=== PATIENT | female | born 1995 | race American Indian/Alaskan Native ===

== ENCOUNTER 2016-12-16 17:12 | Emergency (ER) | payer MEDICAID ==
[2016-12-16] MEDS ORDERED: LORazepam 1 MG Tab PO ONE (17:55)
[2016-12-16] MEDS ORDERED: GI Cocktail Oral Solution 30 ML PO ONE (17:55)
--- NOTE | 2016-12-16 18:02 | EDM.PDOC ---
<Yuniel Thomas - Last Filed: 12/16/16 19:03> ED HPI GENERAL MEDICAL PROBLEM - General Chief Complaint: Chest Pain Stated Complaint: CHEST PAINS, COMING IN OWN VEHICLE Time Seen by Provider: 12/16/16 17:48 Source of Information: Reports: Patient History Limitations: Reports: No Limitations - History of Present Illness INITIAL COMMENTS - FREE TEXT/NARRATIVE: Patient comes emergency Department today with complaints of sharp shooting stabbing intermittent chest pain that has been going on for the past 24 hours. She has not have any chest pain at this time and it comes and goes on its own. Nothing makes it worse or better. It is not worse with a deep breath or cough. She has not had any fever or chills. She denies any shortness of breath. No cough or congestion. He does complain of a sour funny taste in her throat as well. She has had anxiety in the past and this is typically what she feels like when she is having an anxiety attack. He does complain of some nausea as well as some mild epigastric pain. She denies any other abdominal pain. No hematuria dysuria or urinary frequency. Bilateral Upper Chest Pain Score (Numeric/FACES): 8 - Related Data Allergies Allergy/AdvReac Type Severity Reaction Status Date / Time No Known Allergies Allergy Verified 12/16/16 17:24 Home Meds: Home Meds . 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: Musculoskeletal History: Reports: None Neurological History: Reports: None Psychiatric History: Reports: None Endocrine/Metabolic History: Reports: Diabetes, Gestational Hematologic History: Reports: None Immunologic History: Reports: None Oncologic (Cancer) History: Reports: None Dermatologic History: Reports: None - Infectious Disease History Infectious Disease History: Reports: None - Past Surgical History Head Surgeries/Procedures: Reports: None Social & Family History - Family History Family Medical History: Noncontributory - Tobacco Use Smoking Status *Q: Former Smoker Years of Tobacco use: 1 Packs/Tins Daily: 0.2 Used Tobacco, but Quit: Yes Month Tobacco Last Used: 02 Second Hand Smoke Exposure: No - Alcohol Use Days Per Week of Alcohol Use: 0 - Recreational Drug Use Recreational Drug Use: No ED ROS GENERAL - Review of Systems Review Of Systems: ROS reveals no pertinent complaints other than HPI. ED EXAM, GENERAL - Physical Exam Exam: See Below Exam Limited By: No Limitations General Appearance: WD/WN, No Apparent Distress, Anxious Nose: Normal Inspection Throat/Mouth: Normal Inspection, Normal Lips, Normal Oropharynx Head: Atraumatic, Normocephalic Neck: Normal Inspection, Supple, Non-Tender Respiratory/Chest: No Respiratory Distress, Lungs Clear, Normal Breath Sounds, No Accessory Muscle Use, Chest Non-Tender Cardiovascular: Normal Peripheral Pulses, Regular Rate, Rhythm, No Edema, No JVD , No Murmur Peripheral Pulses: 2+: Radial (L), Radial (R), Posterior Tibial (L), Posterior Tibial (R), Dorsalis Pedis (L), Dorsalis Pedis (R) GI/Abdominal: Normal Bowel Sounds, Soft, Tender (Very mild tenderness to deep palpation in the epigastric region. The rest of the abdomen is nontender.). No : Distended, Guarding, Rigid, Rebound (Female) Exam: Deferred Rectal (Female) Exam: Deferred Back Exam: Normal Inspection. No: CVA Tenderness (L), CVA Tenderness (R) Extremities: Normal Inspection, Normal Range of Motion, No Pedal Edema, Normal Capillary Refill Neurological: Alert, Oriented Psychiatric: Normal Affect, Normal Mood Skin Exam: Warm, Dry, Intact, Normal Color EKG INTERPRETATION EKG Date: 12/16/16 Time: 17:43 Rhythm: NSR Rate (Beats/Min): 60 Cabins: Normal P-Wave: Present QRS: Normal ST-T: Normal QT: Normal Comparison: NA - No Prior EKG Course - Vital Signs Last Recorded V/S: Last Vital Signs Temp 36.3 C 12/16/16 17:20 Pulse 56 L 12/16/16 18:31 Resp 16 12/16/16 18:31 BP 107/74 12/16/16 18:31 Pulse Ox 100 12/16/16 18:31 - Orders/Labs/Meds Orders: Active Orders 24 hr Category Date Time Status EKG 12 Lead [EKG Documentation Completion] [RC] URGENT Care 12/16/16 17:54 Active Labs: Laboratory Tests 12/16/16 12/16/16 Range/Units 18:10 18:10 WBC 7.9 (5.0-10.0) 10^3/uL RBC 5.02 (4.2-5.4) 10^6/uL Hgb 13.5 (12.0-16.0) g/dL Hct 40.6 (37.0-47.0) % MCV 80.9 (80-100) fL MCH 26.9 L (27.0-34.0) pg MCHC 33.3 (33.0-35.0) g/dL Plt Count 228 (150-450) 10^3/uL Neut % (Auto) 56.5 (42.2-75.2) % Lymph % (Auto) 33.1 (20.5-50.1) % [place] % (Auto) 5.9 (2-8) % Eos % (Auto) 4.2 H (1.0-3.0) % Baso % (Auto) 0.3 (0.0-1.0) % Sodium 139 (135-145) mmol/L Potassium 3.6 (3.6-5.0) mmol/L Chloride 102 (101-111) mmol/L Carbon Dioxide 25.0 (21.0-31.0) mmol/L Anion Gap 15.6 BUN 9 (7-18) mg/dL Creatinine 0.6 (0.6-1.3) mg/dL Est Cr Clr Drug Dosing 125.92 mL/min Estimated GFR (MDRD) > 60 BUN/Creatinine Ratio 15.00 Glucose 125 H (74-105) mg/dL Calcium 9.2 (8.4-10.2) mg/dl Total Bilirubin 0.7 (0.2-1.0) mg/dL AST 23 (10-42) IU/L ALT 36 (10-60) IU/L Alkaline Phosphatase 95 (42-121) IU/L Troponin I < 0.02 (0.00-0.02) ng/ml Total Protein 7.9 (6.7-8.2) g/dl Albumin 4.2 (3.2-5.5) g/dl Globulin 3.7 Albumin/Globulin Ratio 1.14 Meds: Medications Discontinued Medications Generic Name Dose Route Start Last Admin Trade Name Freq PRN Reason Stop Dose Admin Al Hydroxide/Mg Hydroxide 30 ml 12/16/16 17:55 12/16/16 18:03 Gi Cocktail PO 12/16/16 17:56 30 ml ONETIME ONE Administration Lorazepam 1 mg 12/16/16 17:55 12/16/16 18:04 Ativan PO 12/16/16 17:56 1 mg ONETIME ONE Administration - Re-Assessments/Exams Free Text/Narrative Re-Assessment/Exam: 12/16/16 18:03 GI cocktail by mouth. Ativan 1 mg sublingually. 12/16/16 19:03 Care of this patient given to Dr. Benedict at this time. Disposition will be made by Dr. Benedict. Departure - Departure Disposition: Home, Self-Care 01 Clinical Impression: Atypical chest pain, Anxiety Instructions: Nonspecific Chest Pain, [id number] Forms: ED Department Discharge Additional Instructions: 1) rest 2) follow up at clinic or recheck as needed rx given; hydroxyzine 25mg bid prn x 12 <Jonatan Benedict - Last Filed: 12/16/16 19:31> Course - Re-Assessments/Exams Free Text/Narrative Re-Assessment/Exam: 12/16/16 19:28 re-exam; sleeping arousable has no c/o feels fine wants to go home. states she gets anxiety and this is how it feels and didn't think it was her heart Departure - Departure Time of Disposition: 19:29 Condition: Good
[2016-12-16 18:32] VITALS: BP 107/74
[2016-12-16 18:35] LABS: CHLORIDE,CL 102 mmol/L (101-111); SODIUM,NA 139 mmol/L (135-145)
--- NOTE | 2017-01-04 09:15 | EKG ---
12/16/2016 - PORFIRIO NORWOOD - EKG is sinus rhythm with a rate of 60, normal IA interval, normal axis. EKG is within normal limits. [facility] /[id number]
== END 2016-12-16 19:53 | disposition home or self-care (01) ==
LOC: DL.ED 17:12
DX: R07.89 Other chest pain (principal); F41.9 Anxiety disorder, unspecified; Z87.891 Personal history of nicotine dependence
CPT/HCPCS: 36415; 71020; 80053; 84484; 85025; 93005; 99283; A9270

== ENCOUNTER 2017-05-01 04:31 | Emergency (ER) | payer MEDICAID ==
[2017-05-01 04:38] VITALS: BP 125/87
[2017-05-01] MEDS ORDERED: Benzocaine 20% Oral Spray 59.2 ML Canister MUCMEM ONE (04:46)
[2017-05-01] MEDS ORDERED: Lidocaine 2% Jelly 10 ML Urojet MUCMEM ONE (04:46)
[2017-05-01] MEDS ORDERED: Acetaminophen 500 MG Tab PO ONE (04:47)
--- NOTE | 2017-05-01 04:49 | EDM.PDOC ---
ED HPI GENERAL MEDICAL PROBLEM - General Chief Complaint: ENT Problem Stated Complaint: TOOTHACHE [id number] Time Seen by Provider: 05/01/17 04:44 Source of Information: Reports: Patient, Family History Limitations: Reports: No Limitations - History of Present Illness INITIAL COMMENTS - FREE TEXT/NARRATIVE: 21 yo [place] Female c/o right posterior mandible toothache X 1 week Onset Date: 04/24/17 Onset Time: 12:00 Duration: Getting Worse Location: Reports: Face Quality: Reports: Ache Severity: Moderate Improves with: Reports: None Worsens with: Reports: None Context: Reports: Other (toothache) Associated Symptoms: Reports: No Other Symptoms Right Lower Tooth/Teeth Pain Score (Numeric/FACES): 10 - Related Data Allergies Allergy/AdvReac Type Severity Reaction Status Date / Time No Known Allergies Allergy Verified 05/01/17 04:34 Home Meds: Home Meds . 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: Musculoskeletal History: Reports: None Neurological History: Reports: None Psychiatric History: Reports: None Endocrine/Metabolic History: Reports: Diabetes, Gestational Hematologic History: Reports: None Immunologic History: Reports: None Oncologic (Cancer) History: Reports: None Dermatologic History: Reports: None - Infectious Disease History Infectious Disease History: Reports: None - Past Surgical History Head Surgeries/Procedures: Reports: None Social & Family History - Family History Family Medical History: Noncontributory - Tobacco Use Smoking Status *Q: Former Smoker Years of Tobacco use: 1 Packs/Tins Daily: 0.2 Used Tobacco, but Quit: Yes Month Tobacco Last Used: 02 Second Hand Smoke Exposure: No - Caffeine Use Caffeine Use: Reports: Soda - Alcohol Use Days Per Week of Alcohol Use: 0 - Recreational Drug Use Recreational Drug Use: No ED ROS ENT - Review of Systems Review Of Systems: See Below Constitutional: Reports: No Symptoms HEENT: Reports: Dental Pain (right posterior mandible) Respiratory: Reports: No Symptoms Cardiovascular: Reports: No Symptoms Endocrine: Reports: No Symptoms GI/Abdominal: Reports: No Symptoms : Reports: No Symptoms Musculoskeletal: Reports: No Symptoms Skin: Reports: No Symptoms Neurological: Reports: No Symptoms Psychiatric: Reports: No Symptoms Hematologic/Lymphatic: Reports: No Symptoms Immunologic: Reports: No Symptoms ED EXAM, ENT - Physical Exam Exam: See Below Exam Limited By: No Limitations General Appearance: Alert, WD/WN, No Apparent Distress Eye Exam: Bilateral Eye: PERRL Ears: Normal External Exam Nose: Normal Inspection Mouth/Throat: Normal Inspection, Dental Pain, Dental Tenderness (right posterior mandible) Head: Atraumatic Neck: Normal Inspection Respiratory/Chest: No Respiratory Distress, Lungs Clear Cardiovascular: Normal Peripheral Pulses, Regular Rate, Rhythm GI/Abdominal: Normal Bowel Sounds, Soft Extremities: Normal Inspection Neurological: Alert, Oriented, CN II-XII Intact Psychiatric: Normal Affect Skin: Warm Lymphatic: No Adenopathy Course - Vital Signs Last Recorded V/S: Last Vital Signs Temp 36.4 C 05/01/17 04:36 Pulse 69 05/01/17 04:36 Resp 20 05/01/17 04:36 BP 125/87 05/01/17 04:36 Pulse Ox 100 05/01/17 04:36 Departure - Departure Time of Disposition: 04:52 Disposition: Home, Self-Care 01 Condition: Good Clinical Impression: Dental caries, Odontalgia Fracture of tooth Qualifiers: Encounter type: initial encounter Fracture type: open Qualified Code(s): S02.5XXB - Fracture of tooth (traumatic), initial encounter for open fracture - Discharge Information Additional Instructions: Good oral hygiene - [place] Teeth X 2 mins TID Rinse teeth TID w/ Diluted Listerine Take the Oral Antibiotic as prescribed: PEN V K 500mg QID # 40 For pain apply the toothballs as directed and Tylenol ES 500mg QID F/U w/ Dentist
== END 2017-05-01 05:00 | disposition home or self-care (01) ==
LOC: DL.ED 04:31
DX: S02.5XXB Fracture of tooth (traumatic), initial encounter for open fracture (principal); K02.9 Dental caries, unspecified; Z87.891 Personal history of nicotine dependence; X58.XXXA Exposure to other specified factors, initial encounter
CPT/HCPCS: 99282; A9270

== ENCOUNTER 2020-12-03 06:46 | Emergency (ER) | payer MEDICAID ==
[2020-12-03] MEDS ORDERED: Ibuprofen 800 MG Tab PO ONE (07:01)
--- NOTE | 2020-12-03 07:01 | EDM.PDOC ---
ED HPI GENERAL MEDICAL PROBLEM - General Chief Complaint: Skin Complaint Stated Complaint: [id number] INFECTION IN LEFT HAND Time Seen by Provider: 12/03/20 07:00 Source of Information: Reports: Patient, RN, RN Notes Reviewed History Limitations: Reports: No Limitations - History of Present Illness INITIAL COMMENTS - FREE TEXT/NARRATIVE: Pt presents to ER with c/o infection to left index and middle fingers. Pt claims that about 3 or 4 days ago she scratched her knuckles on a sawsall blade and now it has become infected. Yesterday she tried to squeeze pus out from the fingers, and this morning it looks worse. Denies fever, chills, or other symptoms. Onset: Gradual Duration: Day(s): (3-4) Location: Reports: Upper Extremity, Left Quality: Reports: Ache Severity: Moderate Improves with: Reports: None Worsens with: Reports: None Associated Symptoms: Reports: No Other Symptoms - Related Data Allergies Allergy/AdvReac Type Severity Reaction Status Date / Time No Known Allergies Allergy Verified 04/26/18 08:25 Home Meds: Home Meds . 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: Musculoskeletal History: Reports: None Neurological History: Reports: None Psychiatric History: Reports: None Endocrine/Metabolic History: Reports: Diabetes, Gestational Hematologic History: Reports: None Immunologic History: Reports: None Oncologic (Cancer) History: Reports: None Dermatologic History: Reports: None - Infectious Disease History Infectious Disease History: Reports: None - Past Surgical History Head Surgeries/Procedures: Reports: None Social & Family History - Family History Family Medical History: No Pertinent Family History - Caffeine Use Caffeine Use: Reports: Soda - Living Situation & Occupation Living situation: Reports: Occupation: Unemployed ED ROS GENERAL - Review of Systems Review Of Systems: Comprehensive ROS is negative, except as noted in HPI. ED EXAM, SKIN/RASH Exam: See Below Exam Limited By: No Limitations General Appearance: Alert, WD/WN, No Apparent Distress Head: Atraumatic, Normocephalic Neck: Normal Inspection Respiratory/Chest: No Respiratory Distress, Lungs Clear, Normal Breath Sounds, No Accessory Muscle Use, Chest Non-Tender Cardiovascular: Normal Peripheral Pulses Extremities: Other (Dorsal knuckles of proximal PIP joints left 2nd and 3rd fingers with pustular blisters and abrasions, no surrounding erythema). No: Joint Swelling, Increased Warmth Neurological: Alert, Oriented, No Motor/Sensory Deficits Psychiatric: Normal Mood Skin: Warm, Dry ED SKIN PROCEDURES - I&D Site: Left 2nd and 3rd fingers Skin Prep: Isopropyl Alcohol (Alcohol) Local Anesthesia: Lidocaine: Other (None) Area Incised With: Needle Drainage: Purulent, Small Amount Probed to Break Up Loculations: No Packed With: None Sterile Dressing: Adhesive Dressing Complications: No Course - Orders/Labs/Meds Orders: Active Orders 24 hr Category Date Time Status CULTURE WOUND [RM] Stat Lab 12/03/20 07:02 Ordered Meds: Medications Discontinued Medications Generic Name Dose Route Start Last Admin Trade Name Freq PRN Reason Stop Dose Admin Bacitracin 1 dose 12/03/20 07:03 Bacitracin Oint 1 Gm U/D Packet TOP 12/03/20 07:04 ONETIME ONE Clindamycin HCl 300 mg 12/03/20 07:02 Clindamycin Hcl 150 Mg Cap PO 12/03/20 07:03 ONETIME ONE Doxycycline Monohydrate 100 mg 12/03/20 07:02 Doxycycline Monohydrate 100 Mg Cap PO 12/03/20 07:03 ONETIME ONE Ibuprofen 800 mg 12/03/20 07:01 Ibuprofen 800 Mg Tab PO 12/03/20 07:02 ONETIME ONE Departure - Departure Time of Disposition: 07:11 Disposition: Home, Self-Care 01 Condition: Good Clinical Impression: Abrasion of finger with infection Qualifiers: Encounter type: initial encounter Qualified Code(s): S60.419A - Abrasion of unspecified finger, initial encounter; L08.9 - Local infection of the skin and subcutaneous tissue, unspecified - Discharge Information *PRESCRIPTION DRUG MONITORING PROGRAM REVIEWED*: Not Applicable *COPY OF PRESCRIPTION DRUG MONITORING REPORT IN PATIENT JAIR: Not Applicable Instructions: Abrasion, [id number], Wound Infection, [id number] Forms: ED Department Discharge Additional Instructions: Rx: Clindamycin 300mg Rx: Doxycycline 100mg Rx: Bactroban Ointment 2% Follow up in clinic next week if not improving as expected. - My Orders Last 24 Hours: My Active Orders 12/03/20 07:02 CULTURE WOUND [RM] Stat - Assessment/Plan Last 24 Hours: My Active Orders 12/03/20 07:02 CULTURE WOUND [RM] Stat
[2020-12-03] MEDS ORDERED: Clindamycin HCl 150 MG Cap PO ONE (07:02)
[2020-12-03] MEDS ORDERED: Doxycycline Monohydrate 100 MG Cap PO ONE (07:02)
[2020-12-03] MEDS ORDERED: Bacitracin Oint 1 GM U/D Packet TOP ONE (07:03)
[2020-12-03 07:12] VITALS: BP 114/79; PULSE 94
== END 2020-12-03 07:27 | disposition home or self-care (01) ==
LOC: DL.ED 06:46
DX: S60.411A Abrasion of left index finger, initial encounter (principal); S60.413A Abrasion of left middle finger, initial encounter; L08.9 Local infection of the skin and subcutaneous tissue, unspecified; W26.8XXA Contact with other sharp object(s), not elsewhere classified, initial encounter
CPT/HCPCS: 26010; 87070; 87077; 87186; 99283; A9270

== ENCOUNTER 2021-01-09 10:49 | Emergency (ER) | payer MEDICAID | END 2021-01-09 11:11 | disposition left against medical advice (07) | LOC: DL.ED 10:49 | DX: Z53.21 Procedure and treatment not carried out due to patient leaving prior to being seen by health care provider (principal) ==

== ENCOUNTER 2024-05-11 16:31 | Emergency (ER) | payer SELFPAY ==
[2024-05-11] MEDS ORDERED: Sodium Chloride 0.9% 10 ML Syringe FLUSH PRN (17:19)
[2024-05-11 17:51] LABS: BASOPHILS PERCENT AUTO 0.2 % (0.0-1.0); EOSINOPHILS PERCENT AUTO 2.6 % (1.0-3.0); HEMATOCRIT 37.2 % (37.0-47.0); HEMOGLOBIN 12.3 g/dL (12.0-16.0); LYMPHOCYTES PERCENT AUTO 31.8 % (20.5-50.1); MEAN CORPUSCULAR HEMOGLOBIN 26.1 pg (27.0-34.0); MEAN CORPUSCULAR HGB CONC 33.1 g/dL (33.0-35.0); MEAN CORPUSCULAR VOLUME 78.8 fL (80-100); MONOCYTES PERCENT AUTO 9.1 % (2-8); NEUTROPHILS PERCENT AUTO 56.3 % (42.2-75.2); PLATELET COUNT,PLT 186 10^3/uL (150-450); RED BLOOD CELL COUNT 4.72 10^6/uL (4.2-5.4); WHITE BLOOD CELL COUNT,WBC 4.9 10^3/uL (5.0-10.0)
[2024-05-11 18:05] LABS: INR 1.2 (0.9-1.2); PROTHROMBIN TIME 12.1 SEC (9.0-12.0); PTT,PARTIAL THROMBOPLSTIN TIME 26.3 SEC (22.0-34.0)
[2024-05-11 18:19] LABS: A/G RATIO 0.94; ALBUMIN 3.2 g/dL (3.4-5.0); ALKALINE PHOSPHATASE 404 U/L (46-116); ANION GAP 9.8 mEq/L (7-13); BILIRUBIN TOTAL 9.7 mg/dL (0.2-1.0); BLOOD UREA NITROGEN,BUN 6 mg/dL (7-18); BUN/CREATININE RATIO 9.5 (No establ ref range); C-REACTIVE PROTEIN 1.06 ng/dL (<=0.50); CALCIUM 8.7 mg/dL (8.5-10.1); CARBON DIOXIDE,CO2 29 mmol/L (21-32); CHLORIDE,CL 101 mmol/L (98-107); CREATININE 0.63 mg/dL (0.55-1.02); EST CRCL DRUG DOSING (CG) 112.75 mL/min; GLUCOSE RANDOM 172 mg/dL (70-99); LIPASE 80 U/L (16-77); POTASSIUM,K 2.8 mmol/L (3.5-5.1); PROTEIN TOTAL,TP 6.6 g/dL (6.4-8.2); SODIUM,NA 137 mmol/L (136-145)
[2024-05-11 18:24] LABS: ESTIMATED GFR 122 mL/min (>=60)
[2024-05-11 18:25] LABS: ETHANOL BLOOD MEDICAL < 3 mg/dL (0)
[2024-05-11] MEDS: Iopamidol 612 MG/ML 100 ML Bottle IVPUSH ONE (18:38)
[2024-05-11] MEDS: Potassium Chloride 20 MEQ in Premix Bag 1 BAG IV ONE ×2 (19:08→21:27)
[2024-05-11] MEDS: Sodium Chloride 0.9% 1,000 ML IV ONE (19:08)
[2024-05-11] MEDS: HYDROmorphone 1 MG/ML Syringe IVPUSH ONE ×2 (19:25→22:30)
[2024-05-11 20:21] LABS: ALANINE AMINOTRANSFERASE,ALT > 1000 U/L (14-59); ASPARTATE AMNIOTRANSFERASE,AST > 1000 U/L (15-37)
[2024-05-11] MEDS: Ondansetron 4 MG/2 ML SDV IVPUSH ONE (22:28)
[2024-05-11] MEDS: Piperacillin/Tazobactam 4.5 GM in Sodium Chloride 0.9% 100 ML IV ONE (22:34)
== END 2024-05-11 22:58 ==
LOC: DL.ED 16:31
DX: K72.00 Acute and subacute hepatic failure without coma (principal); K80.10 Calculus of gallbladder with chronic cholecystitis without obstruction; E87.6 Hypokalemia; F17.210 Nicotine dependence, cigarettes, uncomplicated; Z86.16 Personal history of COVID-19; Z79.899 Other long term (current) drug therapy
CPT/HCPCS: 36415; 71045; 74177; 80053; 80074; 80143; 80179; 80307; 82140; 83605; 83615; 83690; 84484; 85025; 85610; 85730; 86140; 93005; 96365; 96366; 96368; 96375; 96376; 99285; J1171; J2405; J2543; J3480; J3490; J7030; Q9967

== ENCOUNTER 2025-04-28 13:31 | Observation (INO) | payer MEDICAID, OTHER ==
[2025-04-28] MEDS: Iopamidol 612 MG/ML 100 ML Bottle IVPUSH ONE (14:05)
[2025-04-28 14:08] LABS: ETHANOL BLOOD MEDICAL < 3 mg/dL (0)
[2025-04-28] MEDS: Ondansetron 4 MG/2 ML SDV IVPUSH ONE (14:09)
[2025-04-28] MEDS: fentaNYL 100 MCG/2 ML SDV IVPUSH ONE (14:11)
[2025-04-28 14:16] LABS: LACTIC ACID 1.4 mmol/L (0.4-2.0)
[2025-04-28 14:18] LABS: APPEARANCE,URINE CLEAR (CLEAR); GLUCOSE,URINE NEGATIVE (NEGATIVE); OCCULT BLOOD,URINE TRACE-INTACT (NEGATIVE)
[2025-04-28 14:22] LABS: AMPHETAMINES,URINE NEGATIVE (NEGATIVE); BARBITURATES,URINE NEGATIVE (NEGATIVE); MDMA (ECSTASY), URINE NEGATIVE (NEGATIVE); METHAMPHETAMINES,URINE NEGATIVE (NEGATIVE); OPIATES,URINE NEGATIVE (NEGATIVE); OXYCODONE,URINE NEGATIVE (NEGATIVE); PHENCYCLIDINE,URINE NEGATIVE (NEGATIVE); TCA,URINE NEGATIVE (NEGATIVE)
[2025-04-28 14:31] LABS: SQUAMOUS EPITHELIAL CELLS,UR FEW /HPF (NOT SEEN)
[2025-04-28 16:36] LABS: ALANINE AMINOTRANSFERASE,ALT 37.0 U/L (14-59); ASPARTATE AMNIOTRANSFERASE,AST 23.0 U/L (15-37); BILIRUBIN DIRECT 0.1 mg/dL (0.0-0.2); BILIRUBIN INDIRECT 0.3; BILIRUBIN TOTAL 0.4 mg/dL (0.2-1.0); IRON,FE 11.0 ug/dL (50-170); PERCENT FE SATURATION 3.0 % (20.0-50.0); PROTEIN TOTAL,TP 7.3 g/dL (6.4-8.2)
[2025-04-28 16:41] LABS: A/G RATIO 0.7
[2025-04-28] MEDS: Magnesium Sulfate 2 GM/50 mL 2 GM in Premix Bag 1 BAG IV ONE (16:53)
[2025-04-28] MEDS: Ondansetron 4 MG/2 ML SDV IVPUSH PRN (16:53)
[2025-04-28] MEDS: Heparin Sodium 5,000 Units/ML Vial SUBCUT SCH (21:01)
[2025-04-29 06:26] LABS: BASOPHILS PERCENT AUTO 0.2 % (0.0-1.0); EOSINOPHILS PERCENT AUTO 2.3 % (1.0-3.0); LYMPHOCYTES PERCENT AUTO 26.5 % (20.5-50.1); MONOCYTES PERCENT AUTO 11.1 % (2-8); NEUTROPHILS PERCENT AUTO 59.9 % (42.2-75.2); PLATELET COUNT,PLT 203 10^3/uL (150-450); RED BLOOD CELL COUNT 3.50 10^6/uL (4.2-5.4); WHITE BLOOD CELL COUNT,WBC 5.7 10^3/uL (5.0-10.0)
[2025-04-29 06:41] LABS: BLOOD UREA NITROGEN,BUN 5.0 mg/dL (7-18); CARBON DIOXIDE,CO2 28.0 mmol/L (21-32); CHLORIDE,CL 104.0 mmol/L (98-107); CREATININE 0.57 mg/dL (0.55-1.02); EST CRCL DRUG DOSING (CG) 123.49 mL/min; GLUCOSE RANDOM 203.0 mg/dL (70-99); POTASSIUM,K 3.7 mmol/L (3.5-5.1); SODIUM,NA 141.0 mmol/L (136-145)
[2025-04-29 06:47] LABS: ESTIMATED GFR 125.0 mL/min (>=60)
== END 2025-04-29 12:10 | disposition home or self-care (01) ==
LOC: DL.ED 13:31 → DL.MS 15:43
PROVIDERS: ADMIT Internal Medicine; ATTEND Internal Medicine
DX: A41.9 Sepsis, unspecified organism (principal); N10 Acute pyelonephritis; R11.2 Nausea with vomiting, unspecified; R00.0 Tachycardia, unspecified; R50.9 Fever, unspecified; J02.0 Streptococcal pharyngitis; F19.10 Other psychoactive substance abuse, uncomplicated; E83.42 Hypomagnesemia; Z79.899 Other long term (current) drug therapy
CPT/HCPCS: 36415; 74177; 80048; 80076; 80305-QW; 80307; 81001; 81025; 83036; 83540; 83550; 83605; 83690; 83735; 84145; 85025; 87040; 87086; 87088; 87186; A9270-GY; J1644; J2270; J2405; J2543; J3010; J3475; J7030; Q9967

== ENCOUNTER 2025-06-04 17:53 | Emergency (ER) | payer MEDICAID ==
[2025-06-04] MEDS ORDERED: Sodium Chloride 0.9% 10 ML Syringe FLUSH PRN (18:03)
[2025-06-04 18:24] LABS: BASOPHILS PERCENT AUTO 0.2 % (0.0-1.0); EOSINOPHILS PERCENT AUTO 2.8 % (1.0-3.0); LYMPHOCYTES PERCENT AUTO 15.4 % (20.5-50.1); MONOCYTES PERCENT AUTO 4.5 % (2-8); NEUTROPHILS PERCENT AUTO 77.1 % (42.2-75.2); PLATELET COUNT,PLT 281 10^3/uL (150-450); RED BLOOD CELL COUNT 4.25 10^6/uL (4.2-5.4); WHITE BLOOD CELL COUNT,WBC 9.4 10^3/uL (5.0-10.0)
[2025-06-04] MEDS: Ondansetron 4 MG/2 ML SDV IVPUSH ONE (18:37)
[2025-06-04 18:48] LABS: A/G RATIO 0.8; ALANINE AMINOTRANSFERASE,ALT 16 U/L (14-59); ASPARTATE AMNIOTRANSFERASE,AST 6 U/L (15-37); BILIRUBIN TOTAL 0.2 mg/dL (0.2-1.0); BLOOD UREA NITROGEN,BUN 13 mg/dL (7-18); CARBON DIOXIDE,CO2 26 mmol/L (21-32); CHLORIDE,CL 104 mmol/L (98-107); CREATININE 0.94 mg/dL (0.55-1.02); EST CRCL DRUG DOSING (CG) 71.73 mL/min; GLUCOSE RANDOM 280 mg/dL (70-99); PHOSPHORUS 2.9 mg/dL (2.6-4.7); POTASSIUM,K 3.9 mmol/L (3.5-5.1); PROTEIN TOTAL,TP 8.0 g/dL (6.4-8.2); SODIUM,NA 141 mmol/L (136-145)
[2025-06-04 18:50] LABS: ESTIMATED GFR 83 mL/min (>=60); HCG QUALITATIVE,SERUM NEGATIVE (NEGATIVE)
[2025-06-04 18:51] LABS: LACTIC ACID 1.9 mmol/L (0.4-2.0)
[2025-06-04] MEDS: Iopamidol 612 MG/ML 100 ML Bottle IVPUSH ONE (19:02)
[2025-06-04 20:00] LABS: APPEARANCE,URINE CLEAR (CLEAR); GLUCOSE,URINE 500 (NEGATIVE); OCCULT BLOOD,URINE SMALL (NEGATIVE)
[2025-06-04 20:08] LABS: EPITHELIAL CELLS,URINE OCCASIONAL /HPF (NOT SEEN)
[2025-06-04] MEDS: Ketorolac 30 MG/ML SDV IVPUSH ONE (20:11)
== END 2025-06-04 20:41 | disposition home or self-care (01) ==
LOC: DL.ED 17:53
DX: K80.10 Calculus of gallbladder with chronic cholecystitis without obstruction (principal); Z79.899 Other long term (current) drug therapy; Z86.16 Personal history of COVID-19
CPT/HCPCS: 36415; 74177; 80053; 81001; 83605; 83690; 83735; 84100; 84703; 85025; 86140; 87086; 87088; 87186; 96374; 96375; 99285; J1885; J2405; Q9967; 99284; J1171

== ENCOUNTER 2025-06-06 16:32 | Emergency (ER) | payer MEDICAID ==
[2025-06-06] MEDS: Ondansetron 4 MG/2 ML SDV IVPUSH ONE (17:00)
== END 2025-06-06 18:20 | disposition home or self-care (01) ==
LOC: DL.ED 16:32
DX: G89.18 Other acute postprocedural pain (principal); E86.0 Dehydration; Z79.899 Other long term (current) drug therapy; Z86.16 Personal history of COVID-19
CPT/HCPCS: 96361; 96374; 96375; 99283; J1171; J2405; J7030